=== PATIENT | female | born 1965 | race Caucasian/White ===

== ENCOUNTER 2019-08-25 00:54 | Outpatient (CLI) | payer OTHER, SELFPAY ==
--- NOTE | 2019-08-25 15:53 | DI.MAMMO_ITS ---
EXAM: MG MAMMO SCREENING CLINICAL HISTORY: SCREENING, Z12.31, ROUTINE, BX 1995 BENIGN TECHNIQUE: Mammograms were interpreted according to the usual protocol including computer analysis w [employer] CAD system, tomosynthesis and C-view imaging. COMPARISON: FINDINGS: The breasts are of moderate density with fairly symmetrical distribution of fibroglandular tissue. N o dominant mass or clumped microcalcification is identified in either breast. Current examination is compared with previous examinations including August 2013 allowing for differences in technique the re has been no gross interval change in appearance in comparison with prior studies. IMPRESSION: No specific evidence of malignancy at this time. Routine screening examinations are suggested at yea rly intervals due to the family history of breast carcinoma Category 1 breast density category B
== END 2019-08-25 01:14 ==
PROVIDERS: Visit Provider Nurse Practitioner Women's Health
DX: Z12.31 Encounter for screening mammogram for malignant neoplasm of breast (principal); Z80.3 Family history of malignant neoplasm of breast
CPT/HCPCS: 77063; 77067

== ENCOUNTER 2024-01-15 18:06 | Outpatient (REF) | payer BC, SELFPAY ==
[2024-01-15 21:22] LABS: MCH 29.2 pg (27.0-33.0); MCHC 31.7 % (32.0-36.0); MCV 92 fL (80-95); MPV 9.6 fL (8.0-11.0); Platelet Count 391 10^3/uL (130-400); RBC 4.45 10^6/uL (3.93-5.22); RDW 13.2 % (11.7-14.6); RDW-SD 45.1 fL; WBC 8.98 10^3/uL (4.4-10.8)
[2024-01-15 21:41] LABS: ALT 22 U/L (14-59); AST 13 U/L (15-37); Albumin 4.3 g/dL (3.4-5.0); Alkaline Phosphatase 92 U/L (46-116); Anion Gap 10.7 mmol/L (3-11); BUN 10 mg/dL (7-18); Bilirubin, Total 0.3 mg/dL (0.2-1.0); CO2 24.3 mmol/L (21.0-32.0); CREATININE 0.7 mg/dL (0.55-1.02); Calcium 9.5 mg/dL (8.5-10.1); Calculated LDL 184 mg/dL (<100); Chloride 100 mmol/L (98-107); Cholesterol 295 mg/dL (<200); Estimated GFR 101.44 (mL/min/1.73m2); Glucose 100 mg/dL (74-106); HDL Cholesterol 61 mg/dL (40-60); Potassium 4.5 mmol/L (3.5-5.1); Sodium 135 mmol/L (136-145); TSH (W/Ref FT4) 2.77 uIU/mL (0.36-3.74); Total Protein 7.1 g/dL (6.4-8.2); Triglyceride 251 mg/dL (<150)
[2024-01-17 09:56] LABS: Hepatitis C Ab w Rflx HCV PCR Negative (Negative)
[2024-01-17 10:13] LABS: HIV-1/2 Ag & Ab Screen Negative (Negative)
== END 2024-01-15 18:07 | disposition home or self-care (01) ==
LOC: LBN 18:06
PROVIDERS: PCP Nurse Practitioner Family; Visit Provider Nurse Practitioner Family
DX: E78.5 Hyperlipidemia, unspecified (principal); R53.83 Other fatigue; Z11.4 Encounter for screening for human immunodeficiency virus [HIV]; Z11.59 Encounter for screening for other viral diseases
CPT/HCPCS: 80053; 80061; 85027; 86803; 87389; 84443

== ENCOUNTER → 2024-01-25 00:34 | Outpatient (CLI) | payer BC, SELFPAY ==
--- NOTE | 2024-01-25 08:00 | DI.MAMMO_ITS ---
Exam(s) MAMMO SCREENING EXAM: MAMMO SCREENING CLINICAL HISTORY: screening, Z12.39 TECHNIQUE: Bilateral full field digital CC and MLO mammographic images were obtained with 3D tomosyn thesis and utilizing computer aided detection (CAD). COMPARISON: Available for comparison. FINDINGS: Masses/Architectural Distortion: There is a new 5 mm nodule in the outer right breast 5.5 cm from the nipple on the craniocaudad view. This appears to be in the central right breast on the MLO view. N o areas of architectural distortion are seen. Microcalcifications: No suspicious pleomorphic-type are seen. Skin Thickening/Nipple Retraction: None. IMPRESSION: 1. New 5 mm nodule in the right breast as described above. 2. Spot compression views are requested. Targeted right breast ultrasound may be obtained at that ti nj. BI-RADS Category 0 - Assessment Incomplete: Need additional imaging evaluation Breast Density - Category B - Scattered areas of fibroglandular density Breast density category C or D implies that the patient has dense breast tissue. Dense breast tissue is very common and is not abnormal but dense breast tissue can make it harder to find cancer on a ma mmogram. Also, dense breast tissue may increase their breast cancer risk. This information about the result of the mammogram report was provided to the patient to raise their awareness. Use this report when you speak with the patient about their risks for breast cancer, which includes their family hist ory. At that time, you may recommend for more screening tests (Ultrasound or MRI) as they might be us eful based on their risk. A negative radiographic report should not delay biopsy if a dominant or clinically suspicious mass is present. Up to ten percent of cancers are not identified on mammography. A negative report may reinforce clinical impression. Adenosis and dense breasts may obscure an underlying neoplasm. False positive reports average 6 to 10%. Patient will receive a letter notifying them of these results.
== END ==
PROVIDERS: PCP Nurse Practitioner Family; Visit Provider Nurse Practitioner Family
DX: Z12.31 Encounter for screening mammogram for malignant neoplasm of breast (principal)
CPT/HCPCS: 77063; 77067

== ENCOUNTER → 2024-01-29 01:58 | Outpatient (CLI) | payer BC, SELFPAY ==
--- NOTE | 2024-01-29 09:41 | DI.MAMMO_ITS ---
Exam(s) MG MAMMO SCREEN CALL BACK UNI US BREAST RT LIMITED EXAM: MG MAMMO SCREEN CALL BACK UNI CLINICAL HISTORY: F/U MAMMO, NEW RT BREAST NODULE,R92.8. TECHNIQUE: Craniocaudal and mediolateral oblique spot compression digital Mammography views of the r ightbreast with Tomosynthesis and right breast ultrasound. COMPARISON: 2013 through recent exam of 25 January 2024 FINDINGS: Mammography/Tomosynthesis: Masses: Persistent circumscribed 5 millimeter nodule in the lateral, anterior tissue. Architectural Distortion: None seen. Microcalcifictions: No suspicious pleomorphic-type are seen. Skin Thickening/Nipple Retraction: None. Right breast US: Echotexture: Normal appearance of the glandular tissue. Shadowing: No suspicious foci. Cyst: None. Solid lesions: None seen. Ductal dilation: None. IMPRESSION: 1. No evidence of malignancy is noted. A small nodule likely represents intramammary lymph node. 2. Six-month follow-up right mammogram recommended.. 3. The findings were discussed with the patient on the date of the examination. BI-RADS Category 3 - 6 month - Probably Benign Finding: Recommend follow-up mammography in 6 months Breast Density - Category A - Almost entirely fatty A mammogram that demonstrates density of C or D indicates the patient's breast tissue is dense. Dense breast tissue is very common and is not abnormal, but dense breast tissue can make it harder to find cancer on a mammogram. Also, dense breast tissue may increase their breast cancer risk. This informa tion about the result of the mammogram report was provided to the patient to raise their awareness. U se this report when you speak with the patient about their risks for breast cancer, which includes th eir family history. At that time, you may recommend for more screening tests (Ultrasound or MRI) as t hey might be useful based on their risk. A negative radiographic report should not delay biopsy if a dominant or clinically suspicious mass is present. Up to ten percent of cancers are not identified on mammography. A negative report may reinforce clinical impression. Adenosis and dense breasts may obscure an underlying neoplasm. False positive reports average 6 to 10%. Patient will receive a letter notifying them of these results.
== END ==
PROVIDERS: PCP Nurse Practitioner Family; Visit Provider Nurse Practitioner Family
DX: R92.8 Other abnormal and inconclusive findings on diagnostic imaging of breast (principal)
CPT/HCPCS: 76642; 77063; 77067

== ENCOUNTER 2024-02-22 21:43 | Outpatient (REF) | payer BC, SELFPAY ==
--- NOTE | 2024-02-22 14:35 | PAPFT_PTH ---
PATIENT: Bianca Esteves LOC: [facility] U#:[id number] AGE/SX: 58/F ROOM: RE02/22/[address]: Elliot Jackson DNP : 1965 BED: DIS: 02/22/2024 SPEC #: [id number] RECD: 02/25/24 13:22 STATUS: [place] RESivakumar #: [id number] RIKY: 02/22/24 14:[address]: Elliot Parker DEPT: [facility] Cytology RECD BY: Nena Payan Tissues: 1 - CX/ENDOCX FOR PAP SMEARS Procedures: PAP THIN PREP/UVM Screening Comments: [id number]
[2024-02-22 21:36] LABS: Bilirubin Negative (Negative); Blood Negative (Negative); Clarity Clear (Clear); Glucose Negative (Negative); Ketones Negative (Negative); Leukocyte Esterase Trace (Negative); Nitrite Negative (Negative); Urobilinogen 0.2 mg/dL (Up to 0.2)
[2024-02-22 21:45] LABS: Bacteria Rare HPF (Negative); C & S Indicated? No; Casts Negative LPF (Negative); Crystals Negative HPF (Negative); Epithelial Cells Few HPF (Negative); Mucus Negative (Negative); RBC 0-2 HPF (0-2)
== END 2024-02-22 21:44 | disposition home or self-care (01) ==
LOC: LBN 21:43
PROVIDERS: PCP Nurse Practitioner Family; Visit Provider Nurse Practitioner Family
DX: R32 Unspecified urinary incontinence (principal); R63.5 Abnormal weight gain; N39.3 Stress incontinence (female) (male); Z68.38 Body mass index [BMI] 38.0-38.9, adult; Z00.00 Encounter for general adult medical examination without abnormal findings
CPT/HCPCS: 88142; 81003; 81015

== ENCOUNTER 2024-08-04 07:28 | Day surgery (SDC) | payer BC, SELFPAY ==
--- NOTE | 2024-08-03 11:48 | PDOC.DSDIS_ITS ---
Date of service: 08/04/24 Discharge Plan Disposition Patient Disposition: Home Condition: Good Discharge Details Reason For Visit: Screening colonoscopy Attending Provider: Pritesh Cisneros Primary Care Provider: Elliot Parker Home Meds and New Rx's Prescriptions: Continued bisacodyl [Dulcolax (bisacodyl)] 5 mg tablet,delayed release (DR/EC) 5 mg PO ONCE Qty: 4 0RF Rx Instructions: Take per colonoscopy instructions provided by ordering providers office polyethylene glycol 3350 17 gram/dose powder 17 g PO ONCE Qty: 238 0RF Rx Instructions: Take per colonoscopy instructions provided by ordering providers office Discharge Instructions Instructions: Diverticulosis Additional Instructions: Bianca, it was very nice meeting you today, and I hope you are comfortable during the colonoscopy. Everything went very smoothly. I did find, and removed , 1 small bit of tissue that had some features consistent with a polyp. It may also just be an everted diverticula. Regardless, this will be sent off to the pathologist for their review. If it is a polyp, we will use that information to help guide the timing of your next colonoscopy. You have fairly extensive diverticulosis. This occurs when the muscular part of the colon weakens as we get older, causing the inside lining to pooch or pocket outward. These little pockets often become impacted with stool, and this can result in flareups of pain typically on the left lower part of the abdomen that we refer to as diverticulitis. Generally, I recommend that patients increase her dietary fiber in an effort to target softer bulkier stools, which should help reduce impaction at the diverticula sites. You should keep track of your average daily dietary fiber intake, targeting approximately 20 to 30 g of fiber per day. Most patients have a hard time eating this with whole foods, and often times require something like Metamucil to help supplement. Drinking plenty of water throughout the course of the day is also quite important as the main job of the large intestine or colon, is to help reabsorb free water. Avoiding constipation will also be very helpful. Once I have the results of the polyp report, my office will be in touch with any other recommendations. If you need anything or have any questions at all, please do not hesitate to ask. 1. If tolerated, consume a soft, low fiber diet for 1-2 days. 2[address] Do not drive, drink alcohol, operate machinery, make critical decisions, or do activities that require coordination or balance for 24 hours. 3. Because air was put into your colon during the procedure, expelling air from your rectum (passing gas or farting) is normal. 4. You may not have a bowel movement for 1-3 days because of the colonoscopy prep. This is normal. 5. Go directly to the emergency room if you notice any of the following: Develop chills (warm to touch), or if you have a thermometer and your temperature is above 101 Difficulty breathing or difficultly swallowing Persistent vomiting Severe abdominal pain, other than gas cramps Severe chest pain Black, tarry stools Any bleeding ? exceeding one tablespoon 6. Call your physician if the site where your intravenous was started becomes red, swollen, painful, and warm to touch. 7. Your physician has reviewed your pre-procedure medications. Please continue to take those medications as previously ordered. You will be given specific information/education regarding any changes to your medications before leaving. Activity:: Activity as Tolerated Diet:: As Tolerated Discharge Orders Discharge Orders: Discharge Order (Routine); Ordered 08/03/24 Ordered By: Pritesh Cisneros DS: Diagnosis Discharge Diagnosis (1) Encounter for screening colonoscopy: Status: Acute Asessment and Plan: Follow-up on polypectomy results
--- NOTE | 2024-08-03 11:50 | COLE_ITS ---
Date of service: 08/04/24 Time of Service: 09:38 Colonoscopy Report Date of procedure: 08/04/24 Pre-op diagnosis general: Screening colonoscopy Post-op diagnosis procedure note: other (Diverticulosis, colon polyp) Procedure: Colonoscopy with polypectomy Surgeon: Pritesh Cisneros Anesthesia Type: General:No Airway Estimated blood loss (mL): 5 Pathology: other (0.25 cm flat polyp at 35 cm) Complications: None Disposition: same day Indications: Bianca is a 59-year-old woman with a history of adenomatous polyps. She is here for her next screening colonoscopy for routine health maintenance. Prep: Miralax/Dulcolax Procedure Start Time: 09:02 Procedure End Time: 09:22 Retraction Time: 11 Findings: Sigmoid, mostly left-sided diverticulosis, 0.25 cm flat polyp at 35 cm Procedure Description: After the induction of anesthesia, and with the patient in left lateral decubitus position, I began by performing an external anorectal exam.? Perineum and skin were normal, as was the anal verge.? There was no evidence of external hemorrhoids.? Next, I performed a digital rectal exam.? I did not appreciate any abnormal findings.? Next, I advanced a colonoscope into the rectal vault.? I performed retroflexion.? This appeared normal.? Using insufflation, I then advanced the colonoscope beyond the rectal folds and into the sigmoid colon before advancing towards the cecum.? The quality of the prep was excellent.? The scope was noted to be in the cecum by identification of the ileocecal valve and appendiceal orifice.? I then began withdrawing the colonoscope using repeated irrigation as necessary for full evaluation of the colonic mucosa. ?There are a few scattered diverticula within the ascending colon. The concentration of diverticulosis increases more on the left side, and certainly within the sigmoid colon. Around 35 cm from the anal verge was a 0.25 cm flat polyp. It may actually be an inverted diverticula, however, given the patient's history of adenomatous polyps, to be safe, I did remove this with cold forceps. There is minimal bleeding from the site. Once the scope was withdrawn to the level of the rectum, great care was taken to examine portions of the rectal folds.? Finally, the scope was withdrawn and the patient was brought to the same-day surgery recovery unit as the anesthetic wore off. ?The findings and instructions were shared with the patient prior to discharge. [place] Bowel Prep [place] Bowel Prep Right Colon: 3 Left Colon: 3 Transverse Colon: 3 Total Score: 9
[2024-08-04 08:02] VITALS: BP 120/80; PULSE 80; RESP 20; TEMP 36.5; O2SAT 97
[2024-08-04] MEDS: Lactated Ringers 1,000 ML 80 ML IV (08:19)
--- NOTE | 2024-08-04 08:36 | W.ANESPRE ---
General Info Date of Service Date Performed: 08/04/24 Height: 5 ft 2 in Weight: 93.4 kg Body Mass Index (BMI): 37.6 Surgical Procedure: Operation Date: 08/04/24 09:05 Proposed Procedure Side Surgeon p Colonoscopy Pritesh Cisneros MD Meds Allergies and Home Medications Allergies Allergy/AdvReac Type Severity Reaction Status Date / Time No Known Allergies Allergy Verified 08/04/24 08:08 Home Medication ?Medication ?Instructions ?Recorded bisacodyl 5 mg tablet,delayed 5 mg PO ONCE #4 tabs 07/24/24 release (Dulcolax (bisacodyl)) polyethylene glycol 3350 17 17 g PO ONCE #238 grams 07/24/24 gram/dose oral powder Current Visit Medications: Current Medications Generic Name Dose Route Start Last Admin Trade Name Freq PRN Reason Stop Dose Admin Ringer's Solution 1,000 mls @ 80 mls/hr 08/04/24 07:45 08/04/24 08:19 IV 09/03/24 07:44 80 mls/hr INFUSION RIGOBERTO Administration IV Miscellaneous Supplies 1 each 08/04/24 06:00 Iv Access IV 08/04/24 23:59 DIRECTED RIGOBERTO Ondansetron HCl 4 mg 08/03/24 11:51 Ondansetron 4 Mg/2 Ml Vial IVP 09/02/24 11:50 Q4H PRN PRN Nausea / Vomiting Sodium Chloride 0 ml 08/04/24 06:00 Normal Saline Flush 10 Ml Syr IV 08/04/24 23:59 PRN PRN Sodium Chloride 0 ml 08/04/24 06:00 Normal Saline 10 Ml Vial IJ 08/04/24 23:59 DIRECTED PRN Sterile Water 0 ml 08/04/24 06:00 Water,Injection,Sterile 10 Ml Vial IJ 08/04/24 23:59 DIRECTED PRN PFSH Active Problems Active Problems: Problem Status Onset Code Encounter for screening colonoscopy Acute Z12.11 Stress incontinence Acute N39.3 BMI 38.0-38.9,adult Acute Z68.38 Weight gain Acute R63.5 Fatigue Acute R53.83 Hyperlipemia Acute E78.5 Medical History Medical History Breast lump (~1995) Abnormal vaginal Pap smear ASCUS 2011, neg/neg 2020 Tubular adenoma of colon (12/26/16) Surgical History Surgical History H/O breast biopsy (~1995) Colonoscopy - IV Sedation (12/26/16) Cholecystectomy (~1997) Tobacco Smoking/Tobacco Use Status: Former Tobacco Use Passive smoking exposure: No Second hand exposure: No Alcohol Alcohol Intake: current Alcohol intake frequency: a few times a month Substance Use Substance use: Never Substance use type: does not use Prental History History 3 Para Hx # Term Pregnancies 3 Multiple births Hx # Pregnancies Ectopic pregnancies AB induced Hx Number of Living Children 3 AB spontaneous Vital Signs and Lab Results Vital Signs Most Recent Vital Signs in EMR: Most Recent Vital Signs Temp Pulse Resp BP Pulse Ox 36.5 C 80 20 120/80 97 08/04/24 08:02 08/04/24 08:02 08/04/24 08:02 08/04/24 08:02 08/04/24 08:02 Lab Results Blood Type / Crossmatch: No Data to Display Complete Blood Count: No Data to Display Complete Metabolic Panel: No Data to Display Liver Function Panel: No Data to Display Coagulation Panel: No Data to Display Cardiac Panel: No Data to Display Arterial Blood Gas: No Data to Display Venous Blood Gas: No Data to Display Pancreas Panel: No Data to Display Thyroid Panel: No Data to Display Infectious Disease: No Data to Display Blood Cultures: No Data to Display Toxicology Panel: No Data to Display Anesthesia Assessment and Plan Anesthesia History Personal History: No History of Anesthesia Complications Family History: No Family History of Anesthesia Complications Exercise Tolerance Exercise Tolerance: Metabolic Equivalents>4 Pertinent Negatives Pertinent Negatives: Other (Active GERD, No PPI) Cardiac & Pulmonary Exam Cardiac Exam: Normal S1/S2 Heart Sounds Pulmonary Exam: Clear Bilateral Breath Sounds Implantable Cardiac Device Does patient have a Pacemaker or an ICD?: No Airway Exam Known Difficult Airway: No Mallampati Class: 2 Mouth Opening: Normal (> 3cm) Thyromental Distance: Greater than 3 cm Neck Range of Motion: Full ROM Neck Circumference: Normal Teeth Condition: Normal Dentition ASA Classification ASA Score: ASA 2 Emergency Case?: No NPO Status NPO Status: NPO Clears >2 hours, Solids >8 hours Anesthesia Plan Resuscitation Status: Full Code Anesthesia Technique: General Anesthesia Airway Planned: Natural Airway Monitors Used: Standard Monitors
[2024-08-04 08:37] VITALS: BMI 37.6
--- NOTE | 2024-08-04 09:19 | BOWEL_PTH ---
PATIENT: Bianca Esteves LOC: [facility] U#:[id number] AGE/SX: 59/F ROOM: RE08/04/[address]: Pritesh Cisneros MD : 1965 BED: DIS: 08/04/2024 SPEC #: [id number] RECD: 08/04/24 13:00 STATUS: [place] RE #: [id number] RIKY: 08/04/24 09:[address]: Pritesh Cisneros DEPT: Surgical Specimen RECD BY: Nena Payan ENTERED: 08/04/24 13:00 SP TYPE: Bowel OTHR DR: Elliot Jackson DNP Tissues: 1 - BIOPSY BOWEL Procedures: GROSS AND MICRO LEVEL 4 Comments: [id number]
[2024-08-04 09:29] VITALS: BP 145/98; PULSE 86; RESP 16; TEMP 36.6; O2SAT 95
--- NOTE | 2024-08-04 09:36 | W.ANESPOSTOP ---
Postoperative Evaluation Date, Time and Location Date Performed: 08/04/24 Time Performed: 09:37 Patient Location: Day Surgery Unit Vital Signs Most Recent Imported Vital Signs: Most Recent Vital Signs Temp Pulse Resp BP Pulse Ox 36.6 C 86 16 145/98 H 95 08/04/24 09:29 08/04/24 09:29 08/04/24 09:29 08/04/24 09:29 08/04/24 09:29 Pain Score Most Recent Pain Score: Most Recent Pain Score Pain Level 0 08/04/24 09:29 Assessment Mental Status: Awake (Alert & Oriented to Patient Baseline) Airway and Respiratory Function: Patent airway with normal (patient baseline) respiratory exam Cardiovascular Function: Hemodynamically Stable Hydration Status: Adequately Hydrated Nausea & Vomiting: No Nausea or Vomiting Pain: Pt. Denies Any Pain Peripheral Nerve Block: Patient did not receive a nerve block
[2024-08-04 09:58] VITALS: BP 131/79; PULSE 74; RESP 18; TEMP 36.4; O2SAT 96
== END 2024-08-04 10:22 | disposition home or self-care (01) ==
LOC: SUR 07:28
PROVIDERS: PCP Nurse Practitioner Family; Visit Provider Surgery
PROC: 0DJD8ZZ Inspection of Lower Intestinal Tract, Via Natural or Artificial Opening Endoscopic (ICD-10-PCS; CPT 45378; principal; 2024-08-04 09:00)
DX: Z12.11 Encounter for screening for malignant neoplasm of colon (principal); K63.5 Polyp of colon; K57.30 Diverticulosis of large intestine without perforation or abscess without bleeding; K63.89 Other specified diseases of intestine
CPT/HCPCS: 45380; 88305; J2704

== ENCOUNTER 2025-04-29 03:39 | Outpatient (CLI) | payer BC, SELFPAY ==
--- NOTE | 2025-04-29 07:00 | DI.MAMMO_ITS ---
Exam(s) MAMMO SCREENING EXAM: MAMMO SCREENING CLINICAL HISTORY: screening,Z12.39 TECHNIQUE: Mammograms were interpreted according to the usual protocol including computer analysis with CAD system, tomosynthesis and C-view imaging. COMPARISON: 2019 and 2023 FINDINGS: The breasts are composed of mainly fatty density , Breast Density category A. No suspicious masses or suspicious microcalcifications are seen. No skin thickening or abnormal axillary lymph nodes are seen. There has been no significant change from prior exams. IMPRESSION: BI-RADS Category 1, Negative mammogram Yearly screening mammography is recommended. Breast Density- Category A - The breast are almost entirely fatty. Breast density Category C or D implies that the patient has dense breast tissue. Dense breast tissue can make it harder to find cancer on a mammogram. Dense breast tissue is also associated with an increased risk of breast cancer. This information about the result of the mammogram report was provided to the patient to raise their awareness. Use this report when you speak with the patient about their risks for breast cancer, which includes their family history. At that time, you may recommend additional screening tests (Ultrasound or MRI) as these tests may add significant information. A negative radiographic report should not delay biopsy if a dominant or clinically suspicious mass is present. Up to ten percent of cancers are not identified on mammography. A negative report may reinforce clinical impression. Adenosis and dense breasts may obscure an underlying neoplasm. False positive reports average 6 to 10%. Patient will receive a letter notifying them of these results.
== END 2025-04-29 03:59 ==
LOC: DI 03:39
PROVIDERS: PCP Nurse Practitioner Family; Visit Provider Nurse Practitioner Family
DX: Z12.31 Encounter for screening mammogram for malignant neoplasm of breast (principal); R92.313 Mammographic fatty tissue density, bilateral breasts
CPT/HCPCS: 77063; 77067